=== PATIENT | male | born 1980 ===

== ENCOUNTER 2021-07-15 21:48 | Emergency (ER) | payer SELFPAY ==
[2021-07-15 23:43] VITALS: BP 121/89
--- NOTE | 2021-07-16 00:06 | Emergency Department Report ---
ED Shortness of Breath HPI - General Chief Complaint: Dyspnea/Respdistress Stated Complaint: COVID+/SOB Time Seen by Provider: 07/15/21 23:45 Source: patient Mode of arrival: Ambulatory Limitations: No Limitations, Language Barrier - History of Present Illness Initial Comments: Patient is a 38-year-old male who presents emergency room with complaints of COVID-19, shortness of breath, cough. Patient states is possible on for 7 days. Patient states that shortness of breath going on for 2 days. Patient dates his symptoms are worsening. Patient states he is never had fever. Patient denies nausea vomiting. Patient denies diarrhea. Patient states he was tested on July 09 and his COVID-19 test was positive. Patient states he had a sick contact with COVID-19 3 days prior to it. Patient states he is not vaccinated against COVID-19. MD Complaint: shortness of breath, cough -: Sudden, days(s) Severity: severe Consistency: constant Improves With: rest Worsens With: exertion, coughing Context: recent URI Associated Symptoms: cough Treatments Prior to Arrival: none - Related Data Home Oxygen Therapy: No Previous Rx's Medication Instructions Recorded Last Taken Type Azithromycin [Zithromax Tri-Harjeet] 500 mg PO DAILY 3 Days #3 tablet 07/16/21 Unknown Rx methylPREDNISolone [Medrol 4MG 4 mg PO DAILY 6 Days #1 tab.ds.pk 07/16/21 Unknown Rx DOSEPAK (21 tabs)] Allergies Allergy/AdvReac Type Severity Reaction Status Date / Time No Known Allergies Allergy Unverified 07/15/21 23:39 ED Review of Systems ROS: Stated complaint: COVID+/SOB Other details as noted in HPI Constitutional: denies: chills, fever Eyes: denies: eye pain, eye discharge, vision change ENT: denies: ear pain, throat pain Respiratory: see HPI, cough, shortness of breath. denies: wheezing Cardiovascular: denies: chest pain, palpitations Endocrine: no symptoms reported Gastrointestinal: denies: abdominal pain, nausea, vomiting, diarrhea Genitourinary: denies: urgency, dysuria Musculoskeletal: denies: back pain, joint swelling, arthralgia Skin: denies: rash, lesions Neurological: denies: headache, weakness, paresthesias Psychiatric: denies: anxiety, depression Hematological/Lymphatic: denies: easy bleeding, easy bruising ED Past Medical Hx - Past Medical History Previous Medical History?: No - Surgical History Past Surgical History?: No - Family History Family history: no significant - Social History Smoking Status: Never Smoker Substance Use Type: None - Medications Home Medications: Home Medications Medication Instructions Recorded Confirmed Last Taken Type Azithromycin [Zithromax Tri-Harjeet] 500 mg PO DAILY 3 Days #3 tablet 07/16/21 Unknown Rx methylPREDNISolone [Medrol 4MG 4 mg PO DAILY 6 Days #1 tab.ds.pk 07/16/21 Unknown Rx DOSEPAK (21 tabs)] ED Physical Exam - General Limitations: No Limitations, Language Barrier General appearance: alert, in no apparent distress - Head Head exam: Present: atraumatic, normocephalic - Eye Eye exam: Present: normal appearance - ENT ENT exam: Present: mucous membranes moist - Neck Neck exam: Present: normal inspection - Respiratory Respiratory exam: Present: normal lung sounds bilaterally. Absent: respiratory distress - Cardiovascular Cardiovascular Exam: Present: regular rate, normal rhythm. Absent: systolic murmur, diastolic murmur, rubs, gallop - GI/Abdominal GI/Abdominal exam: Present: soft, normal bowel sounds - Rectal Rectal exam: Present: deferred - Extremities Exam Extremities exam: Present: normal inspection - Back Exam Back exam: Present: normal inspection - Neurological Exam Neurological exam: Present: alert, oriented X3 - Psychiatric Psychiatric exam: Present: normal affect, normal mood - Skin Skin exam: Present: warm, dry, intact, normal color. Absent: rash ED Course Vital Signs 07/15/21 23:41 Temperature 98.4 F Pulse Rate 90 Respiratory 16 Rate Blood Pressure 121/89 [Left] O2 Sat by Pulse 95 Oximetry - Reevaluation(s) Reevaluation #1: I ambulated the patient with a mobile pulse ox unit. Patient oxygen saturation prior to starting to walk 99%. Patient remained above 96 the entire time the patient was ambulated. Patient was ambulated for adequate distance. Patient did have any respiratory distress or complications with ambulation. Patient had a normal gait. 07/16/21 00:53 Reevaluation #2: I discussed all results and clinical findings with patient. I discussed plan of care with patient. Patient agrees with plan of care. Patient is stable for d ischarge. Patient will be discharged home. Patient given discharge instructions. Patient voiced understanding of discharge instructions. 07/16/21 01:50 ED Medical Decision Making - Lab Data Result diagrams: 07/16/21 00:26 07/16/21 00:26 - Radiology Data Radiology results: report reviewed, image reviewed interpreted by me: Chest x-ray: No pneumonia, no pneumothorax, no foreign body, no osseous findings, no acute findings CHEST 2 VIEWS INDICATION / CLINICAL INFORMATION: Dyspnea, weakness, Covid positive STUDY TIME: 23 COMPARISON: None available. FINDINGS: SUPPORT DEVICES: None. HEART / MEDIASTINUM: No significant abnormality. LUNGS / PLEURA: No significant pulmonary or pleural abnormality. No pneumothorax. ADDITIONAL FINDINGS: No significant additional findings. - Medical Decision Making Patient is a 40-year-old male who presents emergency room with complaints of cough, shortness of breath, positive Covid test. Patient had a Covid test approximately 7 or 8 days ago that was positive for COVID-19. Patient had a cough but states that he became short of breath and he wanted to be evaluated in the ER. Patient had labs done which were essentially unremarkable. Patient had a chest x-ray which was negative for acute findings. Patient's oxygen saturation maintained a normal level and stable. Patient vital signs are reassuring. Patient does not require any further emergency medical services. Patient is stable for discharge. Patient does not require inpatient services. Patient discharged home. I discussed all results and clinical findings with patient. I discussed plan of care with patient. Patient agrees with plan of care. Patient is stable for discharge. Patient will be discharged home. Patient given discharge instructions. Patient voiced understanding of discharge instructions. - Differential Diagnosis Cough, shortness of breath, COVID-19. Critical care attestation.: If time is entered above; I have spent that time in minutes in the direct care of this critically ill patient, excluding procedure time. ED Disposition Clinical Impression: Cough, SOB (shortness of breath), COVID-19 Disposition: 01 HOME / SELF CARE / HOMELESS Is pt being admited?: No Does the pt Need Aspirin: No Condition: Stable Instructions: COVID-19 Frequently Asked Questions, Shortness of Breath, Adult, [id number], COVID-19, Cough, Adult, [id number], COVID-19: How to Protect Yourself and Others - CDC, Prevent the Spread of COVID-19 if You Are Sick - [facility] Additional Instructions: Patient to follow-up with primary care in 2 to 3 days. Patient to follow CDC guidelines for COVID-19. Patient to rest. Patient to increase water. Patient to take Tylenol or ibuprofen as needed for pain. Patient to take meds as directed. Patient to return to the ER if condition worsens, changes or new symptoms arise. Prescriptions: methylPREDNISolone [Medrol 4MG DOSEPAK (21 tabs)] 4 mg PO DAILY 6 Days #1 tab.ds.pk Azithromycin [Zithromax Tri-Harjeet] 500 mg PO DAILY 3 Days #3 tablet Referrals: JUAN CARLOS LOVELACE MD [Staff Physician] - 2-3 Days Time of Disposition: 01:10 Print Language: K[place]
--- NOTE | 2021-07-16 00:45 | XRay Report ---
CHEST 2 VIEWS INDICATION / CLINICAL INFORMATION: Dyspnea, weakness, Covid positive STUDY TIME: 23 COMPARISON: None available. FINDINGS: SUPPORT DEVICES: None. HEART / MEDIASTINUM: No significant abnormality. LUNGS / PLEURA: No significant pulmonary or pleural abnormality. No pneumothorax. ADDITIONAL FINDINGS: No significant additional findings. Signer Name: Lennox Moon MD Signed: 07/16/2021 12:41 AM Workstation Name: [id number]
[2021-07-16 01:00] LABS: Basophils % (Auto) 0.5 % (0.0-1.8); Eosinophils % (Auto) 0.2 % (0.0-4.3); Hematocrit 43.8 % (35.5-45.6); Hemoglobin 15.5 gm/dl (11.8-15.2); Lymphocytes # (Auto) 1.7 K/mm3 (1.2-5.4); Lymphocytes % (Auto) 33.8 % (13.4-35.0); Mean Corpuscular HGB Conc 35 % (32-34); Mean Corpuscular Volume 85 fl (84-94); Monocytes # (Auto) 0.5 K/mm3 (0.0-0.8); Monocytes % (Auto) 9.8 % (0.0-7.3); Platelet Count 180 K/mm3 (140-440); Red Blood Count 5.12 M/mm3 (3.65-5.03); Red Cell Distribution Width 14.1 % (13.2-15.2)
[2021-07-16 01:11] LABS: Alanine Aminotransferase 105 units/L (7-56); Albumin 4.7 g/dL (3.9-5); Blood Urea Nitrogen 6 mg/dL (9-20); Calcium 9.8 mg/dL (8.4-10.2); Hemolysis Index 7
[2021-07-16 01:12] LABS: BUN/Creatinine Ratio 10
== END 2021-07-16 02:30 | disposition home or self-care (01) ==
LOC: ED 21:48
DX: U07.1 COVID-19 (principal); Z79.899 Other long term (current) drug therapy
CPT/HCPCS: 36415; 71046; 80053; 85025; 99283

== ENCOUNTER 2022-01-06 19:42 | Emergency (ER) | payer SELFPAY ==
--- NOTE | 2022-01-06 23:21 | Emergency Department Report ---
ED General Adult HPI - General Chief complaint: Upper Respiratory Infection Stated complaint: CRAMPS/CHILLS/CHEST PAIN Time Seen by Provider: 01/06/22 23:03 Source: patient Mode of arrival: Ambulatory Limitations: No Limitations - History of Present Illness Initial comments: 41-year-old male reported alcoholic states that he continues 9-10 beers every day when he is intoxicated Today for the last 3 days experiencing some chills and aches and body pain has not been eating and drinking enough water although he has been working every day nonstrenuous activity feels he is dehydrated and wanted to be checked. Reports no hemoptysis no hematemesis hematochezia no fever, chills, sweats no palpitations. Has known known liver disease -: Gradual Radiation: non-radiation Quality: dull Consistency: constant Improves with: none Worsens with: none Associated Symptoms: denies other symptoms. denies: confusion, chest pain, cough, diaphoresis, seizure Treatments Prior to Arrival: none - Related Data Previous Rx's Medication Instructions Recorded Last Taken Type Azithromycin [Zithromax Tri-Harjeet] 500 mg PO DAILY 3 Days #3 tablet 07/16/21 Unknown Rx methylPREDNISolone [Medrol 4MG 4 mg PO DAILY 6 Days #1 tab.ds.pk 07/16/21 Unknown Rx DOSEPAK (21 tabs)] Allergies Allergy/AdvReac Type Severity Reaction Status Date / Time No Known Allergies Allergy Verified 01/06/22 19:51 ED Review of Systems ROS: Stated complaint: CRAMPS/CHILLS/CHEST PAIN Other details as noted in HPI Comment: All other systems reviewed and negative ED Past Medical Hx - Social History Smoking Status: Never Smoker - Medications Home Medications: Home Medications Medication Instructions Recorded Confirmed Last Taken Type Azithromycin [Zithromax Tri-Harjeet] 500 mg PO DAILY 3 Days #3 tablet 07/16/21 Unknown Rx methylPREDNISolone [Medrol 4MG 4 mg PO DAILY 6 Days #1 tab.ds.pk 07/16/21 Unknown Rx DOSEPAK (21 tabs)] ED Physical Exam - General Limitations: No Limitations General appearance: alert, in no apparent distress - Head Head exam: Present: atraumatic, normocephalic - Eye Eye exam: Present: normal appearance, PERRL, EOMI - ENT ENT exam: Present: normal exam, mucous membranes moist - Neck Neck exam: Present: normal inspection, full ROM - Respiratory Respiratory exam: Present: normal lung sounds bilaterally. Absent: respiratory distress, wheezes, rales, accessory muscle use, decreased breath sounds - Cardiovascular Cardiovascular Exam: Present: regular rate, normal rhythm. Absent: systolic murmur, diastolic murmur, rubs, gallop - GI/Abdominal GI/Abdominal exam: Present: soft, normal bowel sounds. Absent: tenderness, guarding, hyperactive bowel sounds, hypoactive bowel sounds, mass - Rectal Rectal exam: Present: deferred - Extremities Exam Extremities exam: Present: normal inspection, normal capillary refill - Back Exam Back exam: Present: normal inspection - Neurological Exam Neurological exam: Present: alert, oriented X3 - Psychiatric Psychiatric exam: Present: normal affect, normal mood - Skin Skin exam: Present: warm, dry, intact, normal color. Absent: rash ED Course Vital Signs 01/06/22 19:45 Temperature 99.1 F Pulse Rate 84 Respiratory 18 Rate Blood Pressure 155/102 O2 Sat by Pulse 99 Oximetry Critical care attestation.: If time is entered above; I have spent that time in minutes in the direct care of this critically ill patient, excluding procedure time. ED Disposition Clinical Impression: Alcohol abuse, Elevated liver enzymes, Myalgia Disposition: HOME / SELF CARE / HOMELESS Is pt being admited?: No Does the pt Need Aspirin: No Condition: Stable Instructions: Alcohol Use Disorder, Alcohol Abuse and Dependence Information, Adult, Substance Use Disorder and Mental Illness, Alcohol Abuse and Nutrition
[2022-01-06 23:35] LABS: Basophils % (Auto) 0.7 % (0.0-1.8); Eosinophils # (Auto) 0.1 K/mm3 (0.0-0.4); Eosinophils % (Auto) 1.2 % (0.0-4.3); Hemoglobin 15.1 gm/dl (11.8-15.2); Lymphocytes # (Auto) 1.3 K/mm3 (1.2-5.4); Lymphocytes % (Auto) 19.4 % (13.4-35.0); Mean Corpuscular HGB Conc 34 % (32-34); Mean Corpuscular Volume 94 fl (84-94); Monocytes # (Auto) 0.8 K/mm3 (0.0-0.8); Monocytes % (Auto) 11.3 % (0.0-7.3); Platelet Count 178 K/mm3 (140-440); Red Blood Count 4.79 M/mm3 (3.65-5.03); Red Cell Distribution Width 14.1 % (13.2-15.2)
[2022-01-06 23:48] LABS: Blood Urea Nitrogen 9 mg/dL (9-20); Calcium 10.1 mg/dL (8.4-10.2); Hemolysis Index 5
[2022-01-06 23:50] LABS: BUN/Creatinine Ratio 15; Creatine Kinase MB 5.7 ng/mL (0.0-4.0)
[2022-01-06 23:52] LABS: Alanine Aminotransferase 137 units/L (7-56); Bilirubin,Direct < 0.2 mg/dL (0-0.2)
[2022-01-07 02:42] VITALS: BP 147/86
== END 2022-01-07 02:50 | disposition home or self-care (01) ==
LOC: ED 19:42
DX: F10.10 Alcohol abuse, uncomplicated (principal); R74.01 Elevation of levels of liver transaminase levels; M79.10 Myalgia, unspecified site
CPT/HCPCS: 36415; 80048; 80076; 82550; 82553; 85025; 99283